=== PATIENT | female | born 1995 | race African-American/Black ===

== ENCOUNTER 2016-12-06 01:41 | Emergency (ER) | payer OTHER ==
[~2016-12-06] VITALS: Ht 167.6 cm; Wt 63.5 kg
[2016-12-06] MEDS ORDERED: NS 1,000 ML IV ONE (02:30)
[2016-12-06] MEDS ORDERED: KETOROLAC 30 MG/ML VIAL (J1885) IV ONE (02:30)
[2016-12-06] MEDS ORDERED: ONDANSETRON 4MG/2ML VIAL (J2405) IV ONE (02:30)
[2016-12-06 04:00] VITALS: BP 108/60
== END 2016-12-06 04:00 | disposition home or self-care (01) ==
LOC: M ED 03:18
DX: G43.909 Migraine, unspecified, not intractable, without status migrainosus (principal)
CPT/HCPCS: 96374; 96375; 99283; J1885; J2405